=== PATIENT | male | born 1975 | race Caucasian/White ===

== ENCOUNTER → 2017-03-04 | Outpatient (CLI) | payer OTHER ==
[~2017-03-04] MED LIST: LRT5 PO; OXYC-57 PO
--- NOTE | 2017-03-04 09:58 | DIAGNOSTIC IMAGING REPORT ---
UMBILICAL ULTRASOUND TO ASSESS FOR HERNIA CLINICAL HISTORY: Umbilical protuberance. Evaluate for hernia. COMPARISON STUDY: No previous studies for comparison. FINDINGS: Note is made of a nonreducible fat-containing umbilical hernia. No additional abnormalities were identified. IMPRESSION: Nonreducible fat-containing umbilical hernia. Electronically signed by: Chacorta Cartwright M.D. 03/04/2017 9:56 AM Dictated Date/Time: 03/04/2017 9:56 AM
== END | disposition home or self-care (01) ==
LOC: C.ULTR 09:29
PROVIDERS: ATTEND Family Medicine
DX: K42.9 Umbilical hernia without obstruction or gangrene (principal)

== ENCOUNTER → 2017-03-05 | Outpatient (CLI) | payer OTHER | END | disposition home or self-care (01) | LOC: C.RDSM 11:38 | PROVIDERS: ATTEND Orthopaedic Surgery | DX: R52 Pain, unspecified (principal) ==

== ENCOUNTER → 2017-03-12 | Outpatient (CLI) | payer OTHER ==
--- NOTE | 2017-03-12 18:51 | DIAGNOSTIC IMAGING REPORT ---
ORBITS FOR MRI HISTORY: Pre-MRI pre-MRI screening. COMPARISON: None. FINDINGS: There are no radiopaque foreign bodies identified within the orbits. IMPRESSION: No radiopaque foreign bodies identified within the orbits. The above report was generated using voice recognition software. It may contain grammatical, syntax or spelling errors. Electronically signed by: Shahab Baez M.D. 03/12/2017 6:50 PM Dictated Date/Time: 03/12/2017 6:49 PM
--- NOTE | 2017-03-12 20:01 | DIAGNOSTIC IMAGING REPORT ---
R UPPER EXT JOINT WITHOUT CLINICAL HISTORY: RT SHOULDER INPINGEMENT SYNDROME pain TECHNIQUE: MRI multi axial acquisition COMPARISON STUDY: None FINDINGS: Normal signal characteristics the osseous structures. No bone marrow replacing process. Rotator cuff is intact. No evidence for impingement. Articular services of the glenohumeral joint are unremarkable. The glenoid labrum is normal. Biceps tendon is within normal limits and is located appropriately within the bicipital groove. Study is again negative for rotator cuff tear. IMPRESSION: Normal study The above report was generated using voice recognition software. It may contain grammatical, syntax or spelling errors. Electronically signed by: Shahab Baez M.D. 03/12/2017 7:59 PM Dictated Date/Time: 03/12/2017 7:56 PM
== END | disposition home or self-care (01) ==
LOC: C.MRI 18:25
PROVIDERS: ATTEND Orthopaedic Surgery
DX: M75.40 Impingement syndrome of unspecified shoulder (principal)